=== PATIENT | male | born 1995 | race Caucasian/White ===

== ENCOUNTER → 2016-11-15 | Outpatient (CLI) | payer BC ==
--- NOTE | 2016-11-15 11:02 | Diagnostic Imaging Report ---
PROCEDURE: MRI left joint lower extremity without contrast. TECHNIQUE: Multiplanar, multisequence non contrast-enhanced MRI of the left lower extremity was accomplished. INDICATION: Lateral meniscal tear, pain. COMPARISON: None available. FINDINGS: The lateral meniscus is intact. The medial meniscus demonstrates increased intrasubstance signal, though this does not definitely extend to the articular surface. This increased intrasubstance signal is seen within the posterior horn, body, and anterior horn. The ACL and PCL are intact. Fluid is seen about the medial collateral ligament. Slightly increased signal intensity is also noted within the medial collateral ligament, though the medial collateral ligament appears intact. Mild marrow edema is noted within the medial aspect of the medial tibial plateau near the MCL. Minimal marrow edema also identified within the posterior aspect of the lateral tibial plateau, though no discrete fracture plane is identified. Minimal marrow edema also noted within the posterior aspect of the lateral femoral condyle. Bone marrow signal intensity is otherwise unremarkable. Extensor mechanism is intact. The patella is well seated within the trochlea. No significant joint effusion or Oconnor's cyst. No significant cartilage loss is identified. Soft tissue edema is identified anteromedially about the knee. The LCL is intact. IMPRESSION: 1. Grade 2 sprain of the medial collateral ligament. 2. Marrow edema likely related to bone contusion associated with the medial aspect of the medial tibial plateau, posterior aspect of the lateral tibial plateau, and posterior aspect of the lateral femoral condyle. However, no discrete fracture is present. 3. Intrasubstance signal within the medial meniscus without definite meniscal tear. Dictated by: Dictated on workstation # [id number]
== END ==
LOC: RAD 08:55
PROVIDERS: ATTEND Orthopaedic Surgery
DX: S83.262A Peripheral tear of lateral meniscus, current injury, left knee, initial encounter (principal); S83.412A Sprain of medial collateral ligament of left knee, initial encounter; X58.XXXA Exposure to other specified factors, initial encounter; Y99.8 Other external cause status
CPT/HCPCS: 73721